=== PATIENT | female | born 1985 | race Caucasian/White ===

== ENCOUNTER 2018-05-13 09:30 | Emergency (ER) | payer MEDICAID ==
[~2018-05-13] VITALS: Ht 157.5 cm; Wt 61.2 kg
--- NOTE | 2018-05-13 09:34 | NUR ---
PT AMBULATES TO BED 6
[2018-05-13 09:35] VITALS: BP 121/85
--- NOTE | 2018-05-13 09:52 | NUR ---
33 YO F BIB BOYFRIEND WITH C/O RT LOWER BACK PAIN SINCE THIS MORNING. PT REPORTS FEELING NAUSEOUS, BUT DENIES VOMITING. DENIES FEVER. PT PRESENTS DIAPHORETIC AND PALE. PAIN 10/10. PT UNKNOWN WHEN LAST MENSTRUAL PERIOD WAS, BUT STATES SHE IS NOT . PT DENIES TRAUMA. NO HX OF KIDNEY STONES. AAOX4, GCS 15, CMS INTACT. RR EVEN AND UNLABORED, LUNG SADLER BL CLEAR. ABD SOFT, NON-TENDER. ER MD NOTIFIED OF PT STATUS. PT NEEDS MET. WILL CONTINUE TO MONITOR.
[2018-05-13] MEDS ORDERED: ONDANSETRON 4 MG/2 ML VIAL IVP ONE (09:55)
[2018-05-13] MEDS ORDERED: MORPHINE SULFATE 10 MG/ML SYR IVP ONE (09:55)
[2018-05-13] MEDS ORDERED: KETOROLAC 30 MG/ML VIAL IVP ONE (09:55)
[2018-05-13] MEDS ORDERED: NACL 0.9% 1,000 ML IV SCH (09:55)
[2018-05-13] MEDS ORDERED: MORPHINE SULFATE 4 MG/ML SYR IVP ONE ×2 (10:05→11:05)
--- NOTE | 2018-05-13 10:10 | NUR ---
PT LYING IN [facility] AT THIS TIME. PT REMAINS DIAPHORETIC AND PALE. ER MD WALTON AWARE.
[2018-05-13] MEDS ORDERED: NACL 0.9% 1,000 ML IV ONE (10:15)
--- NOTE | 2018-05-13 10:18 | NUR ---
EDITH BRICEÑO REQUESTING U/S STAT FOR POSSIBLE ECTOPIC /ECTOPIC RUPTURE AT THIS TIME. DEPT NOTIFIED. WILL CONTINUE TO MONITOR.
[2018-05-13 10:43] LABS: BASOPHILS % (AUTO) 0.6 % (0.0-2.0); EOSINOPHILS # (AUTO) 0.2 K/uL (0-0.4); EOSINOPHILS % (AUTO) 3.3 % (0.0-4.0); HEMATOCRIT 44.2 % (36-48); HEMOGLOBIN 14.5 g/dL (12.0-16.0); LYMPHOCYTES # (AUTO) 2.4 K/uL (2.5-16.5); LYMPHOCYTES % (AUTO) 33.4 % (20.5-51.1); MEAN CORPUSCULAR HEMOGLOBIN 30 pg (27-31); MEAN CORPUSCULAR HGB CONC 33 g/dL (33-37); MONOCYTES # (AUTO) 0.6 K/uL (0.8-1.0); MONOCYTES % (AUTO) 8.5 % (1.7-9.3); NEUTROPHILS # (AUTO) 3.8 K/uL (1.8-7.7); NEUTROPHILS % (AUTO) 54.2 % (42.2-75.2); PLATELET COUNT (AUTO) 251 K/uL (140-450); RED BLOOD CELL COUNT(AUTO) 4.91 MIL/uL (4.20-5.40); RED CELL DISTRIBUTION WIDTH 13.8 % (11.6-13.7); WHITE BLOOD COUNT (AUTO) 7.1 K/uL (4.8-10.8)
[2018-05-13 10:47] LABS: APPEARANCE,URINE SL CLOUDY (CLEAR); BILIRUBIN,URINE NEGATIVE (NEGATIVE); BLOOD, URINE 3+ (NEGATIVE); COLOR,URINE YELLOW (YELLOW); LEUKOCYTE ESTERASE ,URINE NEGATIVE (NEGATIVE); NITRITE, URINE NEGATIVE (NEGATIVE); UGLUCOSE NEGATIVE (NEGATIVE)
[2018-05-13 10:56] LABS: RBC,URINE 50-80 /HPF (0-5); WBC,URINE 0-5 (RARE) /HPF (0-5)
[2018-05-13 10:59] LABS: ANION GAP 11.6 (8-16); CARBON DIOXIDE 27.1 mmol/L (21-32); CREATININE 0.7 mg/dL (0.6-1.3); POTASSIUM 3.7 mmol/L (3.5-5.1)
[2018-05-13 11:04] LABS: ALBUMIN 3.6 g/dL (3.4-5.0); TOTAL BILIRUBIN 0.3 mg/dL (0.0-1.0)
--- NOTE | 2018-05-13 11:11 | NUR ---
U/S AT BEDSIDE AT THIS TIME BEGINNING EXAM.
--- NOTE | 2018-05-13 11:34 | NUR ---
PT RESTING COMFORTABLY IN [facility] AT THIS TIME W/ VSS, RR EVEN AND UNLABORED. SAFETY PRECAUTIONS IN PLACE. WILL CONTINUE TO MONITOR.
--- NOTE | 2018-05-13 12:31 | NUR ---
pt resting comfortably in [facility] at this time w/ vss, rr even and unlabored. safety precautions in place. will continue to monitor.
[2018-05-13] MEDS ORDERED: ACETAMINOPHEN EXTRA STRENGTH 500 MG TAB PO ONE (13:00)
--- NOTE | 2018-05-13 13:20 | NUR ---
PT RESTING COMFORTABLY IN [facility] AT THIS TIME W/ VSS, RR EVEN AND UNLABORED. SAFETY PRECAUTIONS IN PLACE, WILL CONTINUE TO MONITOR.
[2018-05-13 14:13] VITALS: BP 125/78
--- NOTE | 2018-05-13 14:13 | NUR ---
Patient discharged with v/s stable. Written and verbal after care instructions given and explained. Patient alert, oriented and verbalized understanding of instructions. Ambulatory with steady gait. All questions addressed prior to discharge. ID band removed. Patient advised to follow up with PMD. Rx of NORCO AND ZOFRAN given. Patient educated on indication of medication including possible reaction and side effects. Opportunity to ask questions provided and answered.
== END 2018-05-13 14:13 | disposition left against medical advice (07) ==
LOC: MED 09:30
DX: O20.0 Threatened abortion (principal); O00.90 Unspecified ectopic pregnancy without intrauterine pregnancy; Z3A.01 Less than 8 weeks gestation of pregnancy
CPT/HCPCS: 36415; 76817; 80053; 81001; 81025; 83690; 84702; 85025; 86900; 86901; 96361; 96374; 96375; 96376; 99285; J1885; J2270; J2405; J7030; Q0092